=== PATIENT | male | born 1950 | race Caucasian/White ===

== ENCOUNTER → 2020-10-24 15:24 | Outpatient (CLI) | payer MEDICARE, OTHER, SELFPAY ==
[2020-10-24] MEDS: COVID-19 VACC(MODERNA-1)/PF 100 MCG/0.5 ML VIAL IM (15:35)
== END ==
PROVIDERS: PCP Registered Nurse; Visit Provider Internal Medicine
DX: Z23 Encounter for immunization (principal)
CPT/HCPCS: 0011A; 91301

== ENCOUNTER → 2020-11-19 15:53 | Outpatient (CLI) | payer MEDICARE, OTHER, SELFPAY ==
[2020-11-19] MEDS: COVID-19 VACC #2, MRNA(MOD) 100 MCG/0.5 ML VIAL IM (15:57)
== END ==
PROVIDERS: PCP Registered Nurse; Visit Provider Internal Medicine
DX: Z23 Encounter for immunization (principal)
CPT/HCPCS: 0012A; 91301

== ENCOUNTER → 2021-09-04 15:07 | Outpatient (CLI) | payer MEDICARE, OTHER, SELFPAY ==
[2021-09-04] MEDS: COVID-19 VACC #3, MRNA(MOD) 50 MCG/0.25 ML VIAL IM (15:17)
== END ==
PROVIDERS: PCP Registered Nurse; Visit Provider Internal Medicine
DX: Z23 Encounter for immunization (principal)
CPT/HCPCS: 0013A; 91301